=== PATIENT | female | born 1965 | race Caucasian/White ===

== ENCOUNTER → 2019-12-18 09:42 | Outpatient (BNVA) | payer BC, SELFPAY | PROVIDERS: Family Provider Nurse Practitioner Family; PCP Nurse Practitioner Family; Visit Provider Obstetrics & Gynecology | DX: N85.2 Hypertrophy of uterus (principal); N84.0 Polyp of corpus uteri | CPT/HCPCS: 76830 ==

== ENCOUNTER 2020-03-21 12:35 | Outpatient (CLI) | payer BC, SELFPAY ==
--- NOTE | 2020-03-21 12:58 | MM_ITS ---
WS: [id number] BILATERAL SCREENING DIGITAL MAMMOGRAM WITH CAD HISTORY: SCREENING COMPARISON: 11/09/2017 and 2014 Bilateral CC and MLO views submitted. Computer aided detection analyzed. Breast composition: The breasts are heterogeneously dense, which may obscure small masses. No suspici ous masses, microcalcifications or architectural distortion. Bilateral asymmetries are stable over mu ltiple years. MM/[place] [id number] IMPRESSION: BI-RADS: 2-Benign FOLLOW UP: 1 Year Follow-up
== END 2020-03-21 12:36 | disposition home or self-care (01) ==
LOC: RADSHAW 12:37
PROVIDERS: PCP Registered Nurse; Visit Provider Obstetrics & Gynecology
DX: Z12.31 Encounter for screening mammogram for malignant neoplasm of breast (principal)
CPT/HCPCS: 77067

== ENCOUNTER → 2021-05-21 11:09 | Outpatient (BNVA) | payer BC, SELFPAY | PROVIDERS: PCP Registered Nurse; Visit Provider Registered Nurse | DX: Z00.00 Encounter for general adult medical examination without abnormal findings (principal); R53.83 Other fatigue; Z13.6 Encounter for screening for cardiovascular disorders | CPT/HCPCS: 80053; 80061; 82607; 84443; 85025 ==

== ENCOUNTER → 2021-08-26 14:41 | Outpatient (BNVA) | payer OTHER, SELFPAY | PROVIDERS: PCP Registered Nurse; Visit Provider Surgery | DX: Z11.52 Encounter for screening for COVID-19 (principal); K41.90 Unilateral femoral hernia, without obstruction or gangrene, not specified as recurrent | CPT/HCPCS: 87635 ==

== ENCOUNTER 2021-08-28 08:28 | Day surgery (SDC) | payer OTHER, SELFPAY ==
[2021-08-27 11:43] VITALS: BMI 22.4
[2021-08-28] VITALS (13 sets, daily range): BP systolic 97–131; BP diastolic 54–73; PULSE 57–67; RESP 14–17; TEMP 36.5–36.9; O2SAT 96–100
--- NOTE | 2021-08-28 08:09 | W.PM.OPSUD ---
Surgery/Procedure H&P Update DATE OF PROCEDURE: August 28, 2021 DATE H&P PERFORMED: 08/26/21 H&P UPDATE INFORMATION: I have reviewed H&P completed within last 30 days, I have examined patient prior to procedure and No changes to prior documentation PLANNED PROCEDURE: Operation Date: 08/28/21 08:30 Proposed Procedures p Laparoscopic poss Open Right Femoral Hernia [id number] K41.90(Right) - Zachary Brumfield MD
[2021-08-28 08:48] LABS: OR HCG Qualitative Urine Negative (Negative)
--- NOTE | 2021-08-28 09:10 | P.ANESASSM_ITS ---
Pre-Anesthetic Assessment Pre-Anesthetic Assessment: Height/Weight: Height 1.68 m Weight 63.049 kg Temp Pulse Resp BP Pulse Ox 97.9 F 64 16 131/73 100 08/28/21 08:39 08/28/21 08:39 08/28/21 08:39 08/28/21 08:39 08/28/21 08:39 Preop Diagnosis: Right groin hernia Proposed Procedure: Operation Date: 08/28/21 08:30 Proposed Procedures p Laparoscopic poss Open Right Femoral Hernia 67196 K41.90(Right) - Zachary Brumfield MD Was Beta Yuri taken within 24 hours: N/A Was Clonidine taken within 24 hours: N/A Last intake: Intake Last Liquid Date 08/27/21 Last Liquid Time 23:00 Last Solid Date 08/27/21 Last Solid Time 20:00 Social: Social History: No alcohol and No tobacco Exam: Pre-Anes Outpt Exam: alert, oriented x 3, clear to auscultation bilaterally and regular rate & rhythm Airway: Submandibular: WNL Cervical ROM: WNL MP: 1 History/ROS: No significant complaints Pulmonary: Pulmonary: None reported CV/HEM: CV/HEM: None reported : : None reported Hepatic: Hepatic: None reported GI: GI: None reported Metabolic: Metabolic: None reported Musc/skel: Musc/skel: None reported Neuropsych: Neuropsych: None reported Anesthetic Plan: ASA status: 1 Anesthesia: General PFSH Anesthesia PFSH: Medical History (Updated 08/26/21 @ 14:52 by Zachary Brumfield MD) Fibroid uterus Has had a fibroid uterus since the . It has been stable in size since at least 2017. Glaucoma Follows up with Dr. Falcon and saw him in November 2019 and was told everything is stable with eyedrops. Surgical History History of colonoscopy S/P dilation and curettage for VIP at the age of 21 S/P myomectomy Open; In 1999---done at [place] for removal of fibroids as she was trying to get . This was done via Pfannenstiel incision S/P wrist surgery ORIF of left wrist after fracture-performed in March 2019 at [facility] Status post corneal transplant 2006 Status post hysteroscopy Has had 2 hysteroscopys in 1996 and 1998 for fibroid resection. Family History Father Heart disease Colon cancer Diagnosed at the age of 83 Diabetes Grandmother Heart disease maternal Mother Thyroid condition Alzheimer disease Lymphoma Denies family history of Ovarian cancer Hyperlipidemia Breast cancer Anesthesia complication Bleeding disorder Hypertension Uterine cancer Stroke Social History Alcohol intake: never Adopted: No Caregiver/support person: No Lives independently: No Household members: significant other service: No Current occupational status: employed History of recent travel: No Sexually active: Yes Current gender identity: Female Female Reproductive History: Date of last menstrual period: 07/30/21 Data Anesthesia Other Labs: Laboratory Results - last 48 hr 08/28/21 08:47 Urine HCG, Qual Negative Cardiac Studies: No Data to Display
[2021-08-28] MEDS: sodium chloride 0.9% 1,000 ML 30 ML IV (09:25)
--- NOTE | 2021-08-28 10:49 | PM.OP ---
Operative Report Date of procedure: August 28, 2021 Pre-op Diagnosis: Right femoral hernia Post-op Diagnosis: Incarcerated right femoral hernia Procedure Done: Laparoscopic total extraperitoneal repair of incarcerated right femoral hernia with Surgimax 15 x 10 cm mesh Pathology: none sent Surgeon: Zachary Brumfield Anesthesia: General Condition: stable Disposition: PACU Procedure: The patient was taken to the operating room. After IV antibiotic was administered, the abdomen was prepped and draped in a sterile manner. Using a 15 blade, a 1.0 cm transverse incision was made infraumbilically on the right side. Subcutaneous tissue was divided using electrocautery and the anterior rectus sheath divided using an 11 blade. The rectus muscle was retracted laterally and the extraperitoneal space identified. A 11 mm port was placed and 12 mm of pneumoperitoneum was created. A 10 mm 30? scope was introduced and the retrorectus space was opened using the camera up to the pubic symphysis and 5 mm ports were placed in the midline, one 2-fingerbreadths above the pubic symphysis and the other midway between these two ports under direct visualization. Blunt dissection was carried out to open up the tissue in the midline and to the pubic symphysis, which was identified. The dissection was then carried laterally where the Chance's ligament was identified. There was no direct or obturator hernia noted. The inferior epigastric artery was identified and dissection was carried posterior to it and laterally, the space was opened up to the level of the umbilicus superior to the anterior superior iliac spine. I then proceeded to dissect out the round ligament and the peritoneal edge was peeled back up to the iliac vessels. There was incarcerated femoral hernia which was completely reduced by applying gentle traction. 15 x 10cm Surugimax 3D mesh was rolled and introduced through the 10 mm port and then rolled laterally and apposed well against the abdominal wall to cover the myopectineal orifice completely. 10 Cc of 0.5% Marcaine was infiltrated into the preperitoneal space. The extraperitoneal space was desufflated under direct visualization to ensure no slippage of hernial sac under the mesh. All ports were removed, the anterior rectus fascia at the infraumbilical port closed using figure of eight 0 Vicryl sutures, subcutaneous tissue approximated using 3-0 Vicryl sutures and skin at all three port sites were closed using running subcuticular 4-0 Monocryl sutures and Dermabond. 10 mL of 0.5% Marcaine was infiltrated at the port sites. The patient was stable throughout the procedure.
[2021-08-28] MEDS: HYDROcodone-acetaminophen 5-325 mg Tablet 1 TAB PO (12:05)
--- NOTE | 2021-08-28 14:27 | ANE.PACU2 ---
Inpatient post-anesthesia follow up: Airway intact: Yes Vital signs: Temperature 98.1 F Pulse Rate 67 Respiratory Rate 14 Blood Pressure 118/67 Pulse Oximetry 97 Oxygen Delivery Me thod Room Air Oxygen Flow Rate 6 Fraction of Inspir ed Oxygen Hydration adequate: Yes Nausea and vomiting: No Pain level: 3 Mental status: Baseline
== END 2021-08-28 13:05 | disposition home or self-care (01) ==
PROVIDERS: PCP Nurse Practitioner Family; Visit Provider Surgery
PROC: (CPT 49650; principal; 2021-08-28 08:30)
DX: K41.30 Unilateral femoral hernia, with obstruction, without gangrene, not specified as recurrent (principal)
CPT/HCPCS: 49659; 84703; C1781; J0690; J1100; J1170; J1200; J2250; J2405; J2704; J3010; J3490; J7030

== ENCOUNTER → 2022-03-25 11:36 | Outpatient (BNVA) | payer OTHER, SELFPAY | PROVIDERS: PCP Registered Nurse; Visit Provider Obstetrics & Gynecology | DX: Z01.419 Encounter for gynecological examination (general) (routine) without abnormal findings (principal) | CPT/HCPCS: 87624 ==

== ENCOUNTER 2022-12-14 14:14 | Outpatient (CLI) | payer BC, SELFPAY ==
--- NOTE | 2022-12-14 14:31 | MM_ITS ---
WS: [id number] BILATERAL 3D TOMOSYNTHESIS DIGITAL SCREENING MAMMOGRAPHY WITH CAD CLINICAL INFORMATION: SCREEN HISTORY: Screening mammogram. No current complaints. COMPARISON: 2020 TECHNIQUE: Bilateral CC and MLO views. FINDINGS: The breasts are composed of heterogeneous fibroglandular density tissue, which can limit the detectio n of small underlying mass lesions. No suspicious mass, asymmetry, calcifications, or architectural d istortion. No evidence of malignancy. A few incidental punctate calcifications. MM/[place] [id number] IMPRESSION: BI-RADS: 2-Benign FOLLOW UP: 1 Year Follow-up Recommend return to annual screening mammography.
== END 2022-12-14 14:15 | disposition home or self-care (01) ==
PROVIDERS: PCP Registered Nurse; Visit Provider Obstetrics & Gynecology
DX: Z12.31 Encounter for screening mammogram for malignant neoplasm of breast (principal)
CPT/HCPCS: 77063; 77067

== ENCOUNTER → 2023-09-24 13:27 | Outpatient (BNVA) | payer BC, SELFPAY | PROVIDERS: PCP Surgery; Visit Provider Podiatrist Foot & Ankle Surgery | DX: M67.471 Ganglion, right ankle and foot (principal); M67.472 Ganglion, left ankle and foot; M21.611 Bunion of right foot; M21.612 Bunion of left foot | CPT/HCPCS: 73630 ==

== ENCOUNTER → 2024-01-17 15:09 | Outpatient (BNVA) | payer BC, SELFPAY | PROVIDERS: PCP Surgery; Visit Provider Registered Nurse | DX: Z12.83 Encounter for screening for malignant neoplasm of skin (principal) | CPT/HCPCS: 88305 ==

== ENCOUNTER → 2024-05-08 12:25 | Outpatient (BNVA) | payer BC, SELFPAY | PROVIDERS: PCP Registered Nurse; Visit Provider Nurse Practitioner Women's Health | DX: D25.9 Leiomyoma of uterus, unspecified (principal) | CPT/HCPCS: 76830 ==